=== PATIENT | male | born 1955 | race Caucasian/White ===

== ENCOUNTER → 2019-01-12 11:09 | Outpatient (CLI) | payer OTHER, SELFPAY ==
--- NOTE | 2019-01-12 11:50 | EKG12_ITS ---
Test Reason : PRE-OP Blood Pressure : / mmHG Vent. Rate : 052 BPM Atrial Rate : 052 BPM P-R Int : 186 ms QRS Dur : 114 ms QT Int : 466 ms P-R-T Axes : 025 -43 007 degrees QTc Int : 433 ms Sinus bradycardia Left axis deviation Abnormal ECG Confirmed by YANDY THOMAS, JESSIE ([id number]), multimedia editor NATIVIDAD VILLANUEVA ([id number]) on 01/13/2019 9:33:57 AM Referred By: Ronald Wu Confirmed By:JESSIE KEBEDE MD
[2019-01-12 12:08] LABS: Hematocrit 44.8 % (40-54); Hemoglobin 15.1 g/dl (13.0-16.5); Mean Corp Hgb Conc 33.7 g/gl (32-36); Mean Corpuscular Hgb 28.9 pg (27.0-32.0); Mean Corpuscular Volume 85.7 fL (80-94); Mean Platelet Vol. 11.3 fl (6.2-12.0); Platelet Count 239 K/mm3 (150-450); RBC Distribution Width CV 12.9 % (11.6-14.6); RBC Distribution Width SD 40.1 fl (35.1-43.9); Red Blood Count 5.23 M/mm3 (4.6-6.2); White Blood Count 4.5 K/mm3 (4.4-11.0)
[2019-01-12 12:09] LABS: Scan Indicated on CBC? Y/N NO
[2019-01-12 12:29] LABS: Anion Gap 7 (5-15); BUN 16 mg/dL (7-18); BUN/Creat Ratio 18.2 RATIO (10-20); Calcium,Total 8.5 mg/dL (8.5-10.1); Chloride 104 mmol/L (98-107); Creatinine, Serum 0.88 mg/dL (0.70-1.30); EST Glomerular Filtration Rate 93 mL/min (>60); Est Glom Filt Rate - Afr Amer 113 mL/min (>60); Glucose 95 mg/dL (74-106); Potassium 3.4 mmol/L (3.5-5.1); Sodium Level 140 mmol/L (136-145)
== END ==
PROVIDERS: Family Provider Family Medicine; PCP Family Medicine; Referring Provider Physician Assistant; Visit Provider Physician Assistant
DX: Z01.818 Encounter for other preprocedural examination (principal); Z01.810 Encounter for preprocedural cardiovascular examination
CPT/HCPCS: 36415; 80048; 85027; 93005

== ENCOUNTER 2022-07-08 10:52 | Day surgery (SDC) | payer MEDICAID, SELFPAY ==
[2022-07-08 11:17] VITALS: BP 150/81; PULSE 50; RESP 16; TEMP 36.3; O2SAT 100; BMI 32.8
[2022-07-08] MEDS: Lactated Ringers 1,000 ML 15 ML IV (11:27)
--- NOTE | 2022-07-08 11:57 | HP.PCM_ITS ---
[facility] - General General Date of Admission: 07/08/22 Date of Service: 07/08/22 Chief Complaint: sreening colonoscopy [facility] Narrative BRITTA BANERJEE, is a 67 M who presents today for screening colonoscopy. He has a past medical history of gastroesophageal reflux disease, hypertension, hypercholesterolemia, hypothyroidism. He is not have any chest pain. He is not have any shortness of breath. He is not having abdominal pain. His last colono scopy was several years ago for screening purposes. He does not have any history of polyps. He is not taking any blood thinners. Overall is in very good health. [facility] Medical History (Updated 07/02/22 @ 15:45 by Yue Johnson) Alcohol use Back pain Cardiology follow-up encounter GERD (gastroesophageal reflux disease) High cholesterol History of stress test Hypertension Hypothyroid Non-smoker Positive occult stool blood test Wears glasses Home Medications atenolol 50 mg-chlorthalidone 25 mg tablet 1 tab PO DAILY 03/26/22 [History Last Taken 07/08/22 09:00] atorvastatin 80 mg tablet 80 mg PO DAILY 03/26/22 [History Last Taken Unknown] levothyroxine 75 mcg capsule 75 mcg PO DAILY 03/26/22 [History Last Taken Unknown] lisinopril 10 mg tablet 10 mg PO DAILY 03/26/22 [History Last Taken 07/08/22 09:00] omeprazole 20 mg capsule,delayed release 20 mg PO DAILY 03/26/22 [History Last Taken 07/08/22 09:00] Allergy/AdvReac Type Severity Reaction Status Date / Time No Known Allergies Allergy Verified 07/08/22 11:51 Surgical History (Updated 07/02/22 @ 15:45 by Yue Johnson) History of percutaneous transluminal coronary angioplasty Hx of repair of left rotator cuff Stented coronary artery Social History Smoking Status: Never smoker ROS Review of Systems ROS Unobtainable: other Constitutional Constitutional: Denies fatigue, fever(s), poor appetite, weight gain or weight loss ENT HEENT: Denies mouth lesions Cardiovascular Cardiovascular: Denies abdominal bloating, abdominal edema or abdominal pain Respiratory/Chest Respiratory/Chest: Denies change in mental status, change in phlegm color, chest congestion or chest tightness Gastrointestinal Gastrointestinal: Denies belching, bloating, change in bowel habits, change in stool character, chewing difficulty, coffee ground emesis, constipation, cramping, diarrhea, dyspepsia, dysphagia, early satiety, excessive flatus, fecal incontinence, heartburn, hematemesis, hematochezia, hemorrhoids, loose stools, melena, nausea, odynophagia, rectal bleeding, tenesmus, vomiting or weight changes Genitourinary Genitourinary: Denies abdominal discomfort, burning urination or itching Musculoskeletal Musculoskeletal: Reports as per HPI; Denies muscle weakness or myalgias Integumentary Integumentary: Denies jaundice Neurologic Neurologic: Denies lack of coordination or weakness Psychiatric Psychiatric: Denies confusion, depression, memory loss, mood swings, paranoia or suicidal ideation Endocrine Endocrinology: Denies systems reviewed and no addt'l complaints, except as documented Hematologic/Lymphatic Hematologic/Lymphatic: Denies anemia, easy bleeding, easy bruising or l ymphadenopathy Allergic/Immunologic Allergic/Immunologic: Denies systems reviewed and no addt'l complaints, except as documented Vital Signs Vital Signs Vital Signs: 07/08/22 11:17 07/08/22 11:17 Temperature 97.4 F L Temperature Source Temporal Pulse Rate 50 L Respiratory Rate 16 Respiratory Pattern Normal Blood Pressure 150/81 H Blood Pressure Mean 104 Blood Pressure Source Monitor Blood Pressure Position Sitting Blood Pressure Location Right Arm Pulse Ox 100 Oxygen Delivery Method Room Air Weight Weight: 222 lb 10.67 oz Body Mass Index (BMI) 32.8 Physical Exam Const alert General Appearance: cooperative Orientation / Consciousness: oriented to person HEENT hearing grossly normal bilaterally Head and Scalp: normal to inspection Face and Sinus: face symmetric Nose: external nose normal Mouth: oral and palatal mucosa normal Eyes conjunctivae normal General Eye: normal appearance of both eyes Neck full ROM General: normal visual inspection Lymph Lymphatic: no lymphadenopathy noted Chest inspection of chest normal and palpation of chest normal Chest: symmetrical chest wall rise Resp normal respiratory effort Effort and Inspection: able to speak in complete sentences Cardio regular rate GI non-distended Percussion: normal to percussion Rectal Exam: deferred Neuro Speech: speech normal Gait (Neuro): normal gait Assessment & Plan Assessment/Plan (1) Encounter for screening for malignant neoplasm of colon: PLAN: He was explained alternatives, risk, benefits including not withstanding bleeding, infection, sepsis, perforation, need for emergent surgery and . He will have an ASA of 1.
--- NOTE | 2022-07-08 12:00 | COLBX_PTH ---
PATIENT: BRITTA BANERJEE LOC: EN U#:[id number] AGE/SX: 67/M ROOM: RE07/08/[address]: Dr. Mateo Molina DO : 1955 BED: DIS: 07/08/2022 SPEC #: [id number] RECD: 07/08/22 15:25 STATUS: BRISEIDA MOHIT #: [id number] WILFRIDO: 07/08/22 12:[address]: Mateo Molina DEPT: SURGICAL PATHOLOGY RECD BY: Alicia Ac ENTERED: 07/09/22 09:27 SP TYPE: COLON BX OT DR: Dr. Waylon Driscoll MD Tissues: A - Ascending colon B - Cecum, NOS C - COLON BIOPSY D - SPLENIC FLEXURE E - Sigmoid colon biopsy Procedures: Surgery Specimen Level IV HEADER OPERATION: Colonoscopy ? open access (MAC), polypectomy PRE-OP DIAGNOSIS: Screening TISSUE SUBMITTED: A ? Ascending polyps x4, B ? Cecum polyps x2, C ? Hepatic flexure polyp x2, D ? Splenic flexure polyp, E ? Sigmoid polyps x2 MICROSCOPIC DIAGNOSIS A. Ascending colon polyps, polypectomy: Fragments of tubular adenoma. B. Cecum polyps, polypectomy: Fragments of tubular adenoma. C. Hepatic flexure polyps, polypectomy: Fragments of tubular adenoma. D. Splenic flexure polyp, polypectomy: Tubular adenoma. E. Sigmoid polyps, polypectomy: Fragments of tubular adenoma. SJ:fely 07/10/2022 MICROSCOPIC DESCRIPTION Slides are reviewed. GROSS DESCRIPTION A - Received in fixative is one container labeled with the patient's name and designated ascending polyps. The specimen consists of multiple irregular fragments of light rawls soft tissue that in aggregate measure 1 x 0.3 x 0.1 cm. The specimen is totally submitted in one cassette. B - Received in fixative is one container labeled with the patient's name and designated cecum polyps. The specimen consists of multiple irregular fragments of light rawls soft tissue mixed with fecal material that in aggregate measure 1.5 x 1 x 0.3 cm. The specimen is totally submitted in one cassette. C - Received in fixative is one container labeled with the patient's name and designated hepatic flexure polyp. The specimen consists of multiple irregular fragments of light rawls soft tissue that in aggregate measure 1 x 0.3 x 0.1 cm. The specimen is totally submitted in one cassette. D - Received in fixative is one container labeled with the patient's name and designated splenic flexure polyp. The specimen consists of one irregular fragment of light rawls soft tissue that measures 0.3 x 0.3 x 0.2 cm. The specimen is totally submitted in one cassette. E - Received in fixative is one container labeled with the patient's name and designated sigmoid polyps. The specimen consists of a one rawls-pink polyp measuring 1.2 x 0.5 x 0.5 cm. Apparent base is inked and polyp is bisected. Separate in the container are two pieces of rawls-pink soft tissue measuring in aggregate 0.5 x 0.5 x 0.1 cm. The entire specimen is submitted in one cassette. / SJ:rg 07/09/2022 TC:1 CPT: 13970 x5
[2022-07-08 12:55] VITALS: BP 112/69; BP 150/81; PULSE 43; RESP 14; TEMP 36.1; O2SAT 99
--- NOTE | 2022-07-08 12:55 | OP.CCLET_ITS ---
07/08/2022 Waylon Driscoll Md Re : Colonoscopy procedure for Korey Crowley Gu[place] Yamila This procedure was performed on Friday, July 08, 2022. My impressions and recommendations are as follows: Impressions : - Ten 1 to 2 mm polyps in the sigmoid colon, at the splenic flexure, at the hepatic flexure, in the ascending colon and in the cecum, removed with a hot snare. Resected and retrieved. - One 15 mm polyp in the sigmoid colon, removed with a hot snare. Resected and retrieved. Tattooed. - One 5 mm polyp in the cecum, removed with a jumbo cold forceps. Resected and retrieved. Recommendations : - Repeat colonoscopy in 1 year for surveillance. - Continue present medications. - No aspirin, ibuprofen, naproxen, or other non-steroidal anti-inflammatory drugs for 5 days. My findings are described in the full procedure note, which is enclosed. If I can be of further assistance, please feel free to contact me at . Sincerely, Mateo Molina, 07/08/2022 12:55:21 PM This report has been signed electronically.
--- NOTE | 2022-07-08 12:55 | OP.COLON_ITS ---
Patient Name: Korey Crowley Procedure Date: 07/08/2022 12:04 PM Date of : 1955 Age: 67 Procedure: Colonoscopy Indications: Screening for colorectal malignant neoplasm Providers: Mateo Molina DO Medicines: Monitored Anesthesia Care Patient Profile: This is a 67 year old male. Refer to note in patient chart for documentation of history and physical. Last Colonoscopy: 10 years ago. Complications: No immediate complications. Procedure: Pre-Anesthesia Assessment: - Prior to the procedure, a History and Physical was performed, and patient medications and allergies were reviewed. The risks and benefits of the procedure and the sedation options and risks were discussed with the patient. All questions were answered and informed consent was obtained. Patient identification and proposed procedure were verified by the physician. Mental Status Examination: alert and oriented. Airway Examination: normal oropharyngeal airway and neck mobility. Respiratory Examination: clear to auscultation. CV Examination: normal. Prophylactic Antibiotics: The patient does not require prophylactic antibiotics. Prior Anticoagulants: The patient has taken no previous anticoagulant or antiplatelet agents. ASA Grade Assessment: II - A patient with mild systemic disease. After reviewing the risks and benefits, the patient was deemed in satisfactory condition to undergo the procedure. The anesthesia plan was to use monitored anesthesia care (MAC). Immediately prior to administration of medications, the patient was re-assessed for adequacy to receive sedatives. The heart rate, respiratory rate, oxygen saturations, blood pressure, adequacy of pulmonary ventilation, and response to care were monitored throughout the procedure. The physical status of the patient was re-assessed after the procedure. After I obtained informed consent, the scope was passed under direct vision. Throughout the procedure, the patient's blood pressure, pulse, and oxygen saturations were monitored continuously. The colonoscope was introduced through the anus and advanced to the cecum, identified by appendiceal orifice and ileocecal valve. The colonoscopy was performed without difficulty. The patient tolerated the procedure well. The quality of the bowel preparation was good. Scope In: 12:16:50 PM Scope Withdrawal Time 0 hours 27 minutes 56 seconds Scope Out: 12:47:33 PM Total Procedure Duration Time 0 hours 30 minutes 43 seconds Findings: The perianal and digital rectal examinations were normal. Ten sessile polyps were found in the sigmoid colon, splenic flexure, hepatic flexure, ascending colon and cecum. The polyps were 1 to 2 mm in size. These polyps were removed with a hot snare. Resection and retrieval were complete. Verification of patient identification for the specimen was done. Estimated blood loss was minimal. A 15 mm polyp was found in the sigmoid colon. The polyp was semi-pedunculated. Area was tattooed with an injection of Rina ink. The polyp was removed with a hot snare. Resection and retrieval were complete. Verification of patient identification for the specimen was done. Estimated blood loss was minimal. A 5 mm polyp was found in the cecum. The polyp was sessile. The polyp was removed with a jumbo cold forceps. Resection and retrieval were complete. Verification of patient identification for the specimen was done. Estimated blood loss was minimal. Impression: - Ten 1 to 2 mm polyps in the sigmoid colon, at the splenic flexure, at the hepatic flexure, in the ascending colon and in the cecum, removed with a hot snare. Resected and retrieved. - One 15 mm polyp in the sigmoid colon, removed with a hot snare. Resected and retrieved. Tattooed. - One 5 mm polyp in the cecum, removed with a jumbo cold forceps. Resected and retrieved. Recommendation: - Repeat colonoscopy in 1 year for surveillance. - Continue present medications. - No aspirin, ibuprofen, naproxen, or other non-steroidal anti-inflammatory drugs for 5 days. Procedure Code(s): --- Professional --- 26126, Colonoscopy, flexible; with removal of tumor(s), polyp(s), or other lesion(s) by snare technique 71678, Colonoscopy, flexible; with directed submucosal injection(s), any substance 63514, 59, Colonoscopy, flexible; with biopsy, single or multiple CPT copyright 2017 [employer]. All rights reserved. The codes documented in this report are preliminary and upon loom starter review may be revised to meet current compliance requirements. Mateo Molina DO 07/08/2022 12:55:21 PM This report has been signed electronically. Number of Addenda: 0 Note Initiated On: 07/08/2022 12:04 PM
[2022-07-08 13:01] VITALS: BP 119/70; BP 150/81; PULSE 43; RESP 14; O2SAT 100
[2022-07-08 13:05] VITALS: BP 130/85; BP 150/81; PULSE 47; RESP 14; O2SAT 100
[2022-07-08 13:09] VITALS: BP 124/72; BP 150/81; PULSE 42; RESP 14; TEMP 36.2; O2SAT 99
[2022-07-08 13:45] VITALS: BP 150/81
== END 2022-07-08 14:29 | disposition home or self-care (01) ==
LOC: EN 10:57 → AC 10:58
PROVIDERS: PCP Family Medicine; Referring Provider Family Medicine; Visit Provider Internal Medicine Gastroenterology
PROC: 0DJD8ZZ Inspection of Lower Intestinal Tract, Via Natural or Artificial Opening Endoscopic (ICD-10-PCS; CPT 45378; principal; 2022-07-08 11:55)
DX: Z12.11 Encounter for screening for malignant neoplasm of colon (principal); D12.2 Benign neoplasm of ascending colon; D12.0 Benign neoplasm of cecum; D12.3 Benign neoplasm of transverse colon; D12.5 Benign neoplasm of sigmoid colon; I10 Essential (primary) hypertension; E03.9 Hypothyroidism, unspecified; K21.9 Gastro-esophageal reflux disease without esophagitis; E78.00 Pure hypercholesterolemia, unspecified; Z90.49 Acquired absence of other specified parts of digestive tract; Z79.899 Other long term (current) drug therapy; Z95.5 Presence of coronary angioplasty implant and graft
CPT/HCPCS: 45381; 45380; 45385; 88305; J7120; A4648; J2405